=== PATIENT | male | born 1930 | race Caucasian/White ===

== ENCOUNTER 2016-12-16 09:40 | Emergency (ER) | payer MEDICARE ==
[~2016-12-16] VITALS: Ht 180.3 cm; Wt 91.6 kg
[~2016-12-16 09:40] MED LIST: ASPI-482 PO; CARV3.122 PO; GLIM4TAB2 PO; LISI-334 PO; LOVA40TA2 PO; METF500T4 PO
--- NOTE | 2016-12-16 10:06 | PHYS DOC ---
Past Medical History Past Medical History: Kidney Stone Additional Past Medical Histor: card. cath,umb. 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 Administered oral glucose with an increase to 41. Upon the EMS presentation on the phone, an amp of D50 was requested to be given. Upon arrival his blood glucose is now 81. He is fully alert and oriented at this time. For EMS, the patient was mildly confused and eating a tai cracker upon arrival. He apparently slipped out of bed and has a skin tear to his left elbow. He denies hitting his head or having any other traumatic injury. Pt takes glimepiride in the morning and metformin twice a day. He denies any abdominal pain. He denies any chest pain or SOB. He denies any cough or fever. Review of Systems Review of Systems Constitutional: Denies fever or chills [] Eyes: Denies change in visual acuity, redness, or eye pain [] HENT: Denies nasal congestion or sore throat [] Respiratory: Denies cough or shortness of breath [] Cardiovascular: No additional information not addressed in HPI [] GI: Denies abdominal pain, nausea, vomiting, bloody stools or diarrhea [] : Denies dysuria or hematuria [] Musculoskeletal: Denies back pain or joint pain [] Integument: Denies rash or skin lesions [] Neurologic: Denies headache, focal weakness or sensory changes [] Endocrine: Denies polyuria or polydipsia [] Allergies Allergies Allergies Coded Allergies Type Severity Reaction Last Updated Verified No Known Drug Allergies 09/05/16 No Physical Exam Physical Exam Constitutional: Well developed, well nourished, no acute distress, non-toxic appearance. [] HENT: Normocephalic, atraumatic, bilateral external ears normal, oropharynx moist, no oral exudates, nose normal. [] Eyes: PERRLA, EOMI, conjunctiva normal, no discharge. [] Neck: Normal range of motion, no tenderness, supple, no stridor. [] Cardiovascular:Heart rate regular rhythm, no murmur [] Lungs & Thorax: Bilateral breath sounds clear to auscultation [] Abdomen: Bowel sounds normal, soft, no tenderness, no masses, no pulsatile masses. [] Skin: Warm, dry, no erythema, no rash. [] Back: No tenderness, no CVA tenderness. [] Extremities: No tenderness, no cyanosis, no clubbing, ROM intact, no edema. [] Neurologic: Alert and oriented X 3, normal motor function, normal sensory function, no focal deficits noted. [] Psychologic: Affect normal, judgement normal, mood normal. [] Current Patient Data Vital Signs Vital Signs Date Time Temp Pulse Resp B/P Pulse Ox O2 Delivery O2 Flow Rate FiO2 12/16/16 11:37 86 18 127/66 96 12/16/16 10:52 Room Air 12/16/16 09:56 98.9 98.9 Lab Values Laboratory Tests Test 12/16/16 09:48 12/16/16 10:25 12/16/16 11:31 Glucose (Fingerstick) 81mg/dL (70-99) 132mg/dL (70-99) H White Blood Count 7.6x10^3/uL (4.0-11.0) Red Blood Count 3.97x10^6/uL (4.30-5.70) L Hemoglobin 12.4g/dL (13.0-17.5) L Hematocrit 36.6% (39.0-53.0) L Mean Corpuscular Volume 92fL (79-100) Mean Corpuscular Hemoglobin 31pg (25-35) Mean Corpuscular Hemoglobin Concent 34g/dL (31-37) Red Cell Distribution Width 15.2% (11.5-14.5) H Platelet Count 172x10^3/uL (140-400) Neutrophils (%) (Auto) 72% (31-73) Lymphocytes (%) (Auto) 18% (24-48) L Monocytes (%) (Auto) 8% (0-9) Eosinophils (%) (Auto) 1% (0-3) Basophils (%) (Auto) 0% (0-3) Neutrophils # (Auto) 5.5x10^3uL (1.8-7.7) Lymphocytes # (Auto) 1.3x10^3/uL (1.0-4.8) Monocytes # (Auto) 0.6x10^3/uL (0.0-1.1) Eosinophils # (Auto) 0.1x10^3/uL (0.0-0.7) Basophils # (Auto) 0.0x10^3/uL (0.0-0.2) Sodium Level 132mmol/L (136-145) L Potassium Level 4.9mmol/L (3.5-5.1) Chloride Level 98mmol/L (98-107) Carbon Dioxide Level 26mmol/L (21-32) Anion Gap 8 (6-14) Blood Urea Nitrogen 26mg/dL (8-26) Creatinine 1.2mg/dL (0.7-1.3) Estimated GFR (Cockcroft-Gault) 57.3 Glucose Level 148mg/dL (70-99) H Calcium Level 9.4mg/dL (8.5-10.1) Laboratory Tests 12/16/16 10:25 Laboratory Tests 12/16/16 10:25 EKG EKG EKG as interpreted by me shows a sinus rhythm with a rate of 80 bpm. QTc interval is 451 ms. There is a leftward axis. There are no obvious acute ischemic findings. There is some artifact seen in leads V5 and V6. Radiology/Procedures Radiology/Procedures [] Course & Med Decision Making Course & Med Decision Making Pertinent Labs and Imaging studies reviewed. (See chart for details) 86-year-old male who had an episode of hypoglycemia that is now resolved. Patient was observed in the department for multiple hours for repeat blood glucose that was 148 and 132 respectively. Patient feels much improved upon my final assessment. The rest of his laboratory workup was unrevealing. I was able to speak with the nurse practitioner at Dr. Castillo's office and arrange a follow-up appointment tomorrow at 1 PM. They also advised to hold glimeperide and have the patient continue to take metformin as prescribed. Patient is very agreeable with this plan and will be discharged to follow up tomorrow as scheduled. Dragon Disclaimer Dragon Disclaimer This electronic medical record was generated, in whole or in part, using a voice recognition dictation system. Departure Departure Impression: Primary Impression: Hypoglycemia Disposition: 01 HOME, SELF-CARE Admitting Physician: Other Condition: STABLE Referrals: COLTEN COTE (PCP) Patient Instructions: Hypoglycemia, [id number] Additional Instructions: Please follow up with your primary doctor tomorrow at 1 pm and discontinue your dose of glimeperide. Continue to take your Metformin as prescribed. Return to the ER if you develop any worsening of your symptoms. ARACELI XAVIER DO Dec 16, 2016 10:06
[2016-12-16 10:46] LABS: CALCIUM 9.4 mg/dL (8.5-10.1); CREATININE 1.2 mg/dL (0.7-1.3); GFR 57.3; POTASSIUM 4.9 mmol/L (3.5-5.1)
[2016-12-16 10:48] LABS: BASO % 0 % (0-3); EOS % 1 % (0-3); HEMATOCRIT 36.6 % (39.0-53.0); HEMOGLOBIN 12.4 g/dL (13.0-17.5); LYMPH # 1.3 x10^3/uL (1.0-4.8); LYMPH % 18 % (24-48); MEAN CORPUSCULAR HEMOGLOBIN 31 pg (25-35); MEAN CORPUSCULAR HGB CONC 34 g/dL (31-37); MEAN CORPUSCULAR VOLUME 92 fL (79-100); MONO % 8 % (0-9); NEUT % 72 % (31-73); PLATELET COUNT 172 x10^3/uL (140-400); RED BLOOD COUNT 3.97 x10^6/uL (4.30-5.70); RED CELL DISTRIBUTION WIDTH 15.2 % (11.5-14.5); WHITE BLOOD COUNT 7.6 x10^3/uL (4.0-11.0)
[2016-12-16 12:02] VITALS: BP 125/96
--- NOTE | 2016-12-16 12:14 | EKG ---
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
== END 2016-12-16 12:07 | disposition home or self-care (01) ==
LOC: ER 09:40
DX: E16.2 Hypoglycemia, unspecified (principal); S51.012A Laceration without foreign body of left elbow, initial encounter; Z95.1 Presence of aortocoronary bypass graft; Z87.442 Personal history of urinary calculi; Z98.890 Other specified postprocedural states; W01.0XXA Fall on same level from slipping, tripping and stumbling without subsequent striking against object, initial encounter; Y93.89 Activity, other specified; Y99.8 Other external cause status; Y92.89 Other specified places as the place of occurrence of the external cause
CPT/HCPCS: 36415; 80048; 82947; 85027; 93005; 99285-25

== ENCOUNTER 2018-03-06 17:32 | Inpatient (IN) | payer MEDICARE ==
[2018-03-06 18:12] LABS: BASO % 0 % (0-3); EOS % 0 % (0-3); HEMOGLOBIN 13.3 g/dL (13.0-17.5); LYMPH # 0.3 x10^3/uL (1.0-4.8); LYMPH % 3 % (24-48); MEAN CORPUSCULAR HEMOGLOBIN 33 pg (25-35); MEAN CORPUSCULAR HGB CONC 35 g/dL (31-37); MEAN CORPUSCULAR VOLUME 95 fL (79-100); MONO # 0.6 x10^3/uL (0.0-1.1); MONO % 5 % (0-9); NEUT # 10.3 x10^3uL (1.8-7.7); NEUT % 92 % (31-73); PLATELET COUNT 125 x10^3/uL (140-400); RED BLOOD COUNT 4.01 x10^6/uL (4.30-5.70); RED CELL DISTRIBUTION WIDTH 13.5 % (11.5-14.5); WHITE BLOOD COUNT 11.3 x10^3/uL (4.0-11.0)
[2018-03-06] MEDS: IV NORMAL SALINE 1000ML BAG 1,000 ML IV ×5 (18:13→22:46)
[2018-03-06] MEDS: ACETAMINOPHEN 500 MG TABLET PO (18:13)
[2018-03-06 18:16] LABS: ADD MAN DIFF? YES
[2018-03-06 18:18] LABS: ANION GAP 9 (6-14); BLOOD UREA NITROGEN 18 mg/dL (8-26); BUN/CREATININE RATIO 15 (6-20); CALCIUM 9.7 mg/dL (8.5-10.1); CARBON DIOXIDE 26 mmol/L (21-32); CHLORIDE 96 mmol/L (98-107); CREATININE 1.2 mg/dL (0.7-1.3); GFR 57.1; GLUCOSE 175 mg/dL (70-99); POTASSIUM 4.6 mmol/L (3.5-5.1); SODIUM 131 mmol/L (136-145)
[2018-03-06 18:19] LABS: BILIRUBIN,URINE MODERATE (NEG); COLOR,URINE RED; GLUCOSE,URINE 100 mg/dL (NEG); NITRITE,URINE POSITIVE (NEG); PROTEIN,URINE >=300 mg/dL (NEG-TRACE)
[2018-03-06 18:20] LABS: INR 1.3 (0.8-1.1); PROTHROMBIN TIME PATIENT 15.3 SEC (11.7-14.0)
[2018-03-06 18:24] LABS: ALBUMIN 3.4 g/dL (3.4-5.0); ALBUMIN/GLOBULIN RATIO 0.9 (1.0-1.7); ALK PHOS 114 U/L (46-116); ALT (SGPT) 22 U/L (16-63); AST (SGOT) 21 U/L (15-37); TOTAL BILIRUBIN 0.8 mg/dL (0.2-1.0); TOTAL PROTEIN 7.1 g/dL (6.4-8.2)
[2018-03-06 18:26] LABS: LACTIC ACID 3.1 mmol/L (0.4-2.0)
[2018-03-06 18:28] LABS: TROPONINI 0.102 ng/mL (0.000-0.055)
[2018-03-06 18:35] LABS: BACTERIA,URINE MANY /HPF (0-FEW); CLARITY,URINE BLOODY; RBC,URINE TNTC /HPF (0-2); WBC,URINE TNTC /HPF (0-4)
[2018-03-06] MEDS ORDERED: ONDANSETRON PF 4 MG/2 ML VIAL. IV (18:45)
[2018-03-06] MEDS ORDERED: NOREPINEPHRIN 8MG/250ML PREMIX 250 ML IV (18:45)
[2018-03-06] MEDS: PIPERACILLIN/TAZOBACTAM 4.5 GM in IV NORMAL SALINE 100ML 100 ML IV (18:58)
[2018-03-06 19:38] LABS: PROCALCITONIN 0.39 ng/mL (0.00-0.10)
[2018-03-06] MEDS: IV NORMAL SALINE 500ML BAG 500 ML IV ×2 (20:32→21:59)
[2018-03-06 21:17] LABS: % BANDS 2 % (0-9); % LYMPHS 6 % (24-48); % MONOS 6 % (0-10); % SEGS 86 % (35-66)
[2018-03-06 21:18] LABS: PLT ESTIMATE DECREASED (ADEQUATE)
[2018-03-06 21:20] LABS: POC GLUCOSE 202 mg/dL (70-99)
[2018-03-06] MEDS: LACTOBACILLUS RHAMNOSUS GG 1 CAPSULE. PO (21:23)
[2018-03-06 22:08] LABS: TROPONINI 1.126 ng/mL (0.000-0.055)
[2018-03-06 22:09] LABS: LACTIC ACID 1.3 mmol/L (0.4-2.0)
[2018-03-06] MEDS ORDERED: DEXTROSE 50% 25 GM / 50ML DISP.SYRIN. IV (22:30)
[2018-03-06] MEDS: HEPARIN 25,000UTS/500ML PREMIX 500 ML IV (22:47)
[2018-03-06] MEDS: ATORVASTATIN CALCIUM 10 MG TABLET. PO (22:48)
[2018-03-07] MEDS: PIPERACILLIN/TAZOBACTAM 4.5 GM in IV NORMAL SALINE 100ML 100 ML IV ×5 (00:33→23:48)
[2018-03-07 05:30] LABS: UNFRACTIONATED HEPARIN TESTING 0.12 IU/mL (0.30-0.70)
[2018-03-07 06:11] LABS: TROPONINI 0.841 ng/mL (0.000-0.055)
[2018-03-07] MEDS: HEPARIN for IV BOLUS 10,000 UNIT/10 ML VIAL. IV (06:49)
[2018-03-07 07:47] LABS: POC GLUCOSE 156 mg/dL (70-99)
[2018-03-07] MEDS: INSULIN LISPRO 300 UNITS/3 ML INSULN.PEN. SQ ×3 (08:00→17:29)
[2018-03-07] MEDS: IV NORMAL SALINE 1000ML BAG 1,000 ML IV ×2 (10:11→18:42)
[2018-03-07 11:43] LABS: POC GLUCOSE 130 mg/dL (70-99)
[2018-03-07 12:08] LABS: TROPONINI 0.629 ng/mL (0.000-0.055)
[2018-03-07] MEDS: LACTOBACILLUS RHAMNOSUS GG 1 CAPSULE. PO ×2 (12:13→20:36)
[2018-03-07 12:45] LABS: HEMATOCRIT 31.7 % (39.0-53.0); HEMOGLOBIN 10.9 g/dL (13.0-17.5); MEAN CORPUSCULAR HEMOGLOBIN 33 pg (25-35); MEAN CORPUSCULAR HGB CONC 35 g/dL (31-37); MEAN CORPUSCULAR VOLUME 97 fL (79-100); PLATELET COUNT 110 x10^3/uL (140-400); RED BLOOD COUNT 3.28 x10^6/uL (4.30-5.70); RED CELL DISTRIBUTION WIDTH 13.5 % (11.5-14.5); WHITE BLOOD COUNT 12.9 x10^3/uL (4.0-11.0)
[2018-03-07 12:53] LABS: ALBUMIN 2.5 g/dL (3.4-5.0); ALBUMIN/GLOBULIN RATIO 0.8 (1.0-1.7); ALK PHOS 70 U/L (46-116); ALT (SGPT) 15 U/L (16-63); ANION GAP 11 (6-14); AST (SGOT) 23 U/L (15-37); BLOOD UREA NITROGEN 12 mg/dL (8-26); BUN/CREATININE RATIO 12 (6-20); CALCIUM 8.5 mg/dL (8.5-10.1); CARBON DIOXIDE 23 mmol/L (21-32); CHLORIDE 105 mmol/L (98-107); GFR 70.5; GLUCOSE 136 mg/dL (70-99); POTASSIUM 3.9 mmol/L (3.5-5.1); SODIUM 139 mmol/L (136-145); TOTAL BILIRUBIN 0.4 mg/dL (0.2-1.0); TOTAL PROTEIN 5.6 g/dL (6.4-8.2)
[2018-03-07] MEDS: ANTI-COAG MONITOR BY PHARMACY. MC (16:21)
[2018-03-07 17:18] LABS: POC GLUCOSE 154 mg/dL (70-99)
[2018-03-07 18:14] LABS: UNFRACTIONATED HEPARIN TESTING 0.24 IU/mL (0.30-0.70)
[2018-03-07 18:25] LABS: TROPONINI 0.728 ng/mL (0.000-0.055)
[2018-03-07] MEDS: ATORVASTATIN CALCIUM 10 MG TABLET. PO (20:36)
[2018-03-07 20:39] LABS: POC GLUCOSE 157 mg/dL (70-99)
[2018-03-07] MEDS: HEPARIN 25,000UTS/500ML PREMIX 500 ML IV (20:39)
[2018-03-08 00:57] LABS: UNFRACTIONATED HEPARIN TESTING 0.31 IU/mL (0.30-0.70)
[2018-03-08 05:57] LABS: ADD MAN DIFF? NO
[2018-03-08] MEDS: PIPERACILLIN/TAZOBACTAM 4.5 GM in IV NORMAL SALINE 100ML 100 ML IV ×3 (05:58→16:40)
[2018-03-08] MEDS: IV NORMAL SALINE 1000ML BAG 1,000 ML IV ×2 (05:58→14:15)
[2018-03-08 06:17] LABS: BASO % 1 % (0-3); EOS # 0.1 x10^3/uL (0.0-0.7); EOS % 2 % (0-3); HEMATOCRIT 31.8 % (39.0-53.0); HEMOGLOBIN 11.3 g/dL (13.0-17.5); LYMPH # 0.8 x10^3/uL (1.0-4.8); LYMPH % 14 % (24-48); MEAN CORPUSCULAR HEMOGLOBIN 34 pg (25-35); MEAN CORPUSCULAR HGB CONC 36 g/dL (31-37); MEAN CORPUSCULAR VOLUME 95 fL (79-100); MONO # 0.9 x10^3/uL (0.0-1.1); MONO % 15 % (0-9); NEUT % 68 % (31-73); PLATELET COUNT 117 x10^3/uL (140-400); RED BLOOD COUNT 3.36 x10^6/uL (4.30-5.70); RED CELL DISTRIBUTION WIDTH 13.4 % (11.5-14.5); WHITE BLOOD COUNT 5.9 x10^3/uL (4.0-11.0)
[2018-03-08 06:22] LABS: ANION GAP 7 (6-14); BLOOD UREA NITROGEN 8 mg/dL (8-26); CALCIUM 8.2 mg/dL (8.5-10.1); CARBON DIOXIDE 24 mmol/L (21-32); CHLORIDE 107 mmol/L (98-107); CREATININE 0.9 mg/dL (0.7-1.3); GFR 79.6; GLUCOSE 131 mg/dL (70-99); POTASSIUM 3.6 mmol/L (3.5-5.1); SODIUM 138 mmol/L (136-145)
[2018-03-08 06:32] LABS: TROPONINI 0.866 ng/mL (0.000-0.055)
[2018-03-08 07:58] LABS: POC GLUCOSE 131 mg/dL (70-99)
[2018-03-08] MEDS: INSULIN LISPRO 300 UNITS/3 ML INSULN.PEN. SQ ×3 (08:00→16:19)
[2018-03-08 08:18] LABS: UNFRACTIONATED HEPARIN TESTING 0.29 IU/mL (0.30-0.70)
[2018-03-08] MEDS: LACTOBACILLUS RHAMNOSUS GG 1 CAPSULE. PO ×2 (09:31→21:02)
[2018-03-08] MEDS: ANTI-COAG MONITOR BY PHARMACY. MC ×2 (09:59→13:29)
[2018-03-08 11:54] LABS: POC GLUCOSE 166 mg/dL (70-99)
[2018-03-08 16:15] LABS: POC GLUCOSE 178 mg/dL (70-99)
[2018-03-08 19:02] LABS: POC GLUCOSE 187 mg/dL (70-99)
[2018-03-08] MEDS: ATORVASTATIN CALCIUM 10 MG TABLET. PO (21:02)
[2018-03-09] MEDS: PIPERACILLIN/TAZOBACTAM 4.5 GM in IV NORMAL SALINE 100ML 100 ML IV ×3 (00:13→12:00)
[2018-03-09] MEDS: IV NORMAL SALINE 1000ML BAG 1,000 ML IV ×3 (00:15→13:44)
[2018-03-09] MEDS: LACTOBACILLUS RHAMNOSUS GG 1 CAPSULE. PO (07:20)
[2018-03-09 07:53] LABS: POC GLUCOSE 139 mg/dL (70-99)
[2018-03-09] MEDS: INSULIN LISPRO 300 UNITS/3 ML INSULN.PEN. SQ ×2 (08:00→13:03)
[2018-03-09 12:09] LABS: POC GLUCOSE 193 mg/dL (70-99)
[2018-03-09] MEDS: ASPIRIN ENTERIC COATED 81 MG TABLET.DR. PO (15:14)
== END 2018-03-09 15:15 | disposition home or self-care (01) | DRG 871 ==
LOC: ER 17:32 → 2 NORTH 18:38
DX: A41.9 Sepsis, unspecified organism (principal); I21.A1 Myocardial infarction type 2; I21.4 Non-ST elevation (NSTEMI) myocardial infarction; I50.22 Chronic systolic (congestive) heart failure; I42.9 Cardiomyopathy, unspecified; N39.0 Urinary tract infection, site not specified; I25.10 Atherosclerotic heart disease of native coronary artery without angina pectoris; I11.0 Hypertensive heart disease with heart failure; M21.379 Foot drop, unspecified foot; E78.5 Hyperlipidemia, unspecified; E11.9 Type 2 diabetes mellitus without complications; R31.0 Gross hematuria; Z95.1 Presence of aortocoronary bypass graft; Z82.49 Family history of ischemic heart disease and other diseases of the circulatory system; Z79.899 Other long term (current) drug therapy; Z95.3 Presence of xenogenic heart valve; Z87.442 Personal history of urinary calculi; Z98.52 Vasectomy status
CPT/HCPCS: 36415; 71045; 74176; 80048; 80053; 81001; 82962; 83605; 84145; 84484; 85007; 85025; 85027; 85520; 85610; 87040; 87086; 87186; 93005; 93306; 96365; 96375; 99291; 99291-25; J0690; J1644; J1815; J2543; J7030; J7040

== ENCOUNTER → 2018-05-28 | Outpatient (CLI) | payer MEDICARE ==
[2018-03-09 10:45] VITALS: BP 125/74
[~2018-05-28] MED LIST changes: +LISI10TA2 PO; -METF500T4 PO; +METF500T5 PO
--- NOTE | 2018-05-28 14:14 | KCIC ---
MRI Lumbar Spine without contrast History: Low back pain, radiculopathy, right foot drop, bilateral lower extremity numbness Technique: Multiplanar, multi sequential noncontrast MR imaging was performed of the lumbar spine. Contrast: None Comparison: February 17, 2014 Findings: Lumbar vertebral body stature is overall preserved. There is advanced degenerative disc disease L3-L4 and L4-5 and to lesser degree at L2-3, L1-2, and L5-S1, progressed at L3-4 and L2-3 in the interval. There is very minimal posterior subluxation L4 relative to L5, L3 relative to L4, and L2 relative to L3. There is negligible anterior spondylolisthesis L1-2. Lumbar vertebral body stature is unchanged. Conus terminates at L1. There is no significant marrow edema. L1-L2: There is again posterior disc osteophyte complex and broad bulge. There is again facet hypertrophic change and buckling of the ligamentum flavum. There is similar moderate to severe left lateral recess stenosis and moderate narrowing of the central canal, overall mild to moderate right lateral recess stenosis. There is moderate to severe narrowing of the left neural foramen, mild narrowing on the right. L2-L3: There is again facet hypertrophic change and buckling of the ligamentum flavum. There is disc osteophyte complex and superimposed bulge/broad protrusion eccentric to the lateral recesses. There is increased severe spinal stenosis, increased effacement of subarachnoid space and lateral recess stenosis bilaterally with impingement of the descending L3 nerve roots, somewhat greater on the left. There is again mild to moderate left and increased mild to moderate right neural foramina compromise. L3-L4: There is again disc osteophyte complex and bulge, also extrusion extending below the intervertebral disc space more eccentric to the right lateral recess as seen previously. There is again facet hypertrophic change and buckling of the ligamentum flavum. There is prominence of posterior epidural fat. There is again severe right lateral recess stenosis with contact of the descending right L4 nerve root, also moderate to severe left lateral recess stenosis and moderate narrowing of the central canal. There is again severe narrowing of the right neural foramen with impingement exiting right L3 nerve root, moderate to to severe narrowing on the left greater distally, disc osteophyte complex near the undersurfaces of proximal extraforaminal L3 nerve roots bilaterally. L4-L5: There is again disc osteophyte complex and bulge. There is facet degenerative change. There is similar mild narrowing of the far lateral recesses bilaterally, contact of the descending L5 nerve roots. There is moderate to severe right and [id number] left neural foramina compromise. Disc osteophyte complex is near the undersurfaces of the proximal extraforaminal L4 nerve roots without displacement. L5-S1: There is again minimal disc osteophyte complex. Spinal canal is not significantly narrowed. There is again moderate to severe right and fairly severe left neural foramina compromise primarily from posteriorly by facet hypertrophic change although also minimal disc osteophyte complex. Impression: 1. Compared with the 2014 exam, there is increased severe spinal stenosis L2-3. There is other lateral recess stenosis most notable right greater than left at L3-4 and left greater than right at L1-2. 2. There is multilevel significant lumbar neural foramina compromise as stated greatest bilaterally at L5-S1 and L3-4, on the left at L1-2, and on the right at L4-5. 3. There is advanced degenerative disc disease L3-4 and L4-5 and to lesser degree at other levels, progressed at L3-4 and L2-3 in the interval. There is multilevel spondylosis. There is multilevel mild abnormal alignment, multilevel facet degenerative change. Electronically signed by: Yasir Solis MD (05/28/2018 2:11 PM) [id number]
== END | disposition home or self-care (01) ==
LOC: KCIC MRI 10:34
PROVIDERS: ATTEND Anesthesiology Pain Medicine
DX: M51.36 Other intervertebral disc degeneration, lumbar region (principal); M47.896 Other spondylosis, lumbar region; M48.061 Spinal stenosis, lumbar region without neurogenic claudication; M25.78 Osteophyte, vertebrae; I11.0 Hypertensive heart disease with heart failure; E11.9 Type 2 diabetes mellitus without complications; E78.5 Hyperlipidemia, unspecified; E87.6 Hypokalemia; I25.10 Atherosclerotic heart disease of native coronary artery without angina pectoris; Z95.1 Presence of aortocoronary bypass graft; Z95.3 Presence of xenogenic heart valve; Z87.442 Personal history of urinary calculi; Z87.891 Personal history of nicotine dependence; Z89.411 Acquired absence of right great toe; Z68.28 Body mass index [BMI] 28.0-28.9, adult; Z86.2 Personal history of diseases of the blood and blood-forming organs and certain disorders involving the immune mechanism; Z82.49 Family history of ischemic heart disease and other diseases of the circulatory system
CPT/HCPCS: 72148